=== PATIENT | male | born 1990 | race African-American/Black ===

== ENCOUNTER 2018-09-23 18:45 | Emergency (ER) | payer MEDICAID, OTHER ==
[~2018-09-23] VITALS: Ht 182.9 cm; Wt 74.8 kg
[2018-09-23 22:02] LABS: Basophils # (auto) 0 uL; Basophils % (auto) 0.5 % (0.0-2.0); Eosinophils # (auto) 0 uL; Eosinophils % (auto) 0.5 % (0.0-7.0); Hematocrit 42.2 % (41.0-53.0); Hemoglobin 14.3 g/dL (13.5-17.5); Lymphocytes # (auto) 1.3 uL; Lymphocytes % (auto) 35.1 % (10.0-50.0); Mean Corpuscular Hemoglobin 30.5 pg (28.0-32.0); Mean Corpuscular Hgb Conc. 33.8 g/dL (32.0-36.0); Mean Corpuscular Volume 90.4 fL (80.0-100.0); Monocytes # (auto) 0.4 uL; Monocytes % (auto) 9.9 % (0.0-12.0); Nucleated Red Blood Cells % 0.1 %; Platelet Count (auto) 188 10^3/uL (140-450); Red Blood Cells 4.67 10^6/uL (4.5-5.90); Red Cell Distribution Width 13.4 % (11.8-14.3); White Blood Cell 3.7 10^3/uL (4.4-10.8)
[2018-09-23 22:09] LABS: Albumin 3.8 g/dL (3.4-5.0); Calcium 8.2 mg/dL (8.5-10.1); Magnesium 2.1 mg/dL (1.6-2.6); Potassium 3.7 mmol/L (3.5-5.1)
[2018-09-23 22:13] LABS: BUN/Creatinine Ratio 9.7; Bilirubin, Total 0.5 mg/dL (0.2-1.0); Total Protein 7.3 g/dL (6.4-8.2)
[2018-09-23 22:14] LABS: Urine Bacteria NONE SEEN /hpf (None Seen); Urine Blood Negative /uL (Negative); Urine Specific Gravity 1.017 (1.001-1.035); Urine WBC <1 /hpf (0 - 3)
[2018-09-24 00:14] VITALS: BP 119/76
[2018-09-24] MEDS ORDERED: ONDANSETRON ODT 4 MG TAB PO ONE (00:30)
[2018-09-24] MEDS ORDERED: LIDOCAINE VISCOUS 2% 15ML UD PO ONE (00:30)
[2018-09-24] MEDS ORDERED: DONNATAL 5ml ORAL Elix (BELLADONNA ALK-PHENOBARB) PO ONE (00:30)
[2018-09-24] MEDS ORDERED: ALUM & MAG HYDROX-SIMETH LIQ(MAALOX) 30 ML PO ONE (00:30)
== END 2018-09-24 01:29 | disposition home or self-care (01) ==
LOC: ER 18:45
DX: K52.9 Noninfective gastroenteritis and colitis, unspecified (principal); R51 Headache
CPT/HCPCS: 36415; 80053; 81001; 83735; 85025; 99284; Q0162